=== PATIENT | male | born 1985 | race Caucasian/White ===

== ENCOUNTER 2018-12-09 14:58 | Emergency (ER) | payer OTHER ==
[~2018-12-09] VITALS: Ht 172.7 cm; Wt 70.3 kg
[~2018-12-09 14:58] MED LIST: ALBIPROI INH; ALBU90OI6 INH; CEPH500 PO; GABA100 PO; IBUP800 PO; Naprosyn500 MG PO; PRED20 PO; PROCODE120 PO; Robaxin-750750 MG PO; Ultram50 MG PO
[2018-12-09] MEDS ORDERED: ALBU4 PO (15:06)
[2018-12-09] MEDS ORDERED: Cleocin HCl300 MG PO (15:38)
[2018-12-09] MEDS ORDERED: HYDR1TAB94 PO (15:38)
== END 2018-12-09 16:01 | disposition home or self-care (01) ==
LOC: ER 14:58
DX: K04.7 Periapical abscess without sinus (principal); F17.210 Nicotine dependence, cigarettes, uncomplicated
CPT/HCPCS: 99282

== ENCOUNTER 2019-04-03 12:18 | Emergency (ER) | payer OTHER ==
[~2019-04-03] VITALS: Ht 180.3 cm; Wt 70.3 kg
[~2019-04-03 12:18] MED LIST changes: +ALBU4 PO; +Cleocin HCl300 MG PO; +HYDR1TAB94 PO
== END 2019-04-03 14:57 | disposition home or self-care (01) ==
LOC: ER 12:18
DX: S61.213A Laceration without foreign body of left middle finger without damage to nail, initial encounter (principal); W26.8XXA Contact with other sharp object(s), not elsewhere classified, initial encounter; J45.909 Unspecified asthma, uncomplicated; F17.210 Nicotine dependence, cigarettes, uncomplicated; Z79.899 Other long term (current) drug therapy
CPT/HCPCS: 12002; 73140; 90471; 90714; 99283-25

== ENCOUNTER 2019-08-09 12:45 | Emergency (ER) | payer OTHER ==
[~2019-08-09] VITALS: Ht 180.3 cm; Wt 68.0 kg
== END 2019-08-09 14:12 | disposition home or self-care (01) ==
LOC: ER 12:45
DX: S81.811A Laceration without foreign body, right lower leg, initial encounter (principal); W29.3XXA Contact with powered garden and outdoor hand tools and machinery, initial encounter; F17.200 Nicotine dependence, unspecified, uncomplicated
CPT/HCPCS: 12002; 99282-25